=== PATIENT | female | born 1945 | race Caucasian/White ===

== ENCOUNTER → 2017-07-24 15:43 | Outpatient (CLI) | payer MEDICARE, OTHER, SELFPAY ==
--- NOTE | 2017-07-24 | IMM_PTH ---
PATIENT: APARNA GUERRERO LOC: [facility] U#:[id number] AGE/SX: 79/F ROOM: RE07/24/[address]: Dr. Javid Gann MD : 1945 BED: DIS: SPEC #: [id number] RECD: 07/28/17 11:17 STATUS: ANTHONY REQ #: [id number] RENE: 07/24/17 00:[address]: Javid Gann DEPT: IMMUNOHISTOCHEMISTRY RECD BY: Rachael Barrera ENTERED: 07/28/17 11:18 SP TYPE: IMMUNO OTHR DR: Dr. Christiano Burton III, MD Tissues: Left breast, NOS Procedures: CALPONIN-1 (add) CK5-6 (add) CK8 (add) E-CAD (add) HER2 LEANDRO (add) KI-67 (add) P53 (add) MD (add) P40 (add) ER (initial) PHYSICIAN & INSTITUTION [place] [phone] SPECIMEN INFORMATION: Tissue Source: Left breast Clinical Info: Abnormal mammogram Specimen Number: [id number] CPT code: 09695, 96646 x6, 68097 x3 METHODOLOGY: Deparaffinized sections of prefer/formalin-fixed tissue or PAP/DQ stained slides are incubated with monoclonal/polyclonal antibodies/oligonucleotide probes. Localization is made via biotin free immunoperoxidase method. Appropriate controls are performed and reacted as expected. Results on target cell population are indicated in the following table: RESULTS: ANTIBODY / CLONE RESULT P53 (DO-7) positive, 3% Ki-67 (30-9) positive, moderate CK8 (58szbkH31) positive CK5-6 (D5 & 1684) negative Calponin-1 (EX331V) negative P40 (BC28) negative E-Cad (ECH-6) positive MORPHOMETRIC ANALYSIS ER (clone 6F11) >95%, strong MD (clone 16/1E2) >95%, strong Her-2Neu (clone CB11) 0 The prognostic test for HER2 is performed on formalin-fixed paraffin embedded tissue. A 3+ (positive) staining pattern is defined as intense, homogeneous, complete, circumferential membranous staining in >10% of contiguous tumor cells. A similar weak (2+) staining pattern is interpreted as equivocal. ANIYA follow-up testing is recommended for all equivocal cases. Positivity/negativity for ER/MD is reported if > or < 1% of the tumor cells are immuno- reactive, respectively. The ASCO/CAP criteria is used for scoring. Reference: Journal of Clinical Oncology, 2013; 31:7834-2274 & 2010; 16:3491-5097. Duration of fixation: __ Hrs; Sample Adequate: Yes. These assays have not been validated on decalcified tissues. Results should be interpreted with caution given the likelihood of false negativity on decalcified specimens. These tests were developed and their performance characteristics determined by [facility]. They may not have been cleared or approved by the U.S. Food and Drug Administration. The FDA has determined that such clearance or approval is not necessary. INTERPRETATION: Left breast, ultrasound-guided biopsy: Invasive ductal carcinoma, grade 2/3. Positive for estrogen receptors (favorable prognostic indicator). Positive for progesterone receptors (favorable prognostic indicator). Negative for overexpression of UBH6ole. AM:kenyetta 07/29/17
--- NOTE | 2017-07-24 | BRBX_PTH ---
PATIENT: APARNA GUERRERO LOC: [facility] U#:[id number] AGE/SX: 79/F ROOM: RE07/24/[address]: Dr. Javid Gann MD : 1945 BED: DIS: SPEC #: [id number] RECD: 07/24/17 15:27 STATUS: ANTHONY BUSHElisabeth #: [id number] RENE: 07/24/17 00:[address]: Javid Gann DEPT: SURGICAL PATHOLOGY RECD BY: Eder Mendez ENTERED: 07/25/17 10:50 SP TYPE: BREAST BX OTHR DR: Dr. Christiano Burton III, MD Tissues: Left breast, NOS Procedures: Surgery Specimen Level IV HEADER OPERATION: Ultrasound-guided left breast biopsy PRE-OP DIAGNOSIS: Abnormal mammogram TISSUE SUBMITTED: Left breast ISCHEMIC TIME: <2 minutes MICROSCOPIC DIAGNOSIS Left breast, ultrasound-guided core biopsy: Invasive ductal carcinoma. Maximal length ? 1.3 cm Nuclear grade - 2 AM:kenyetta 07/28/17 COMMENT ER/NJ/Upy6yjx studies are being performed on sections of tumor and the results from this study will be reported separately ([id number]). MICROSCOPIC DESCRIPTION Slides are reviewed. GROSS DESCRIPTION Received is one container labeled with the patient's name and not further designated. The specimen consists of multiple elongated fragments of yellow-white soft tissue that in aggregate measure 1.5 x 1 x 0.1 cm. The specimen is totally submitted in one cassette. / AM:kenyetta 07/25/17 TC:0 CPT: 04214
== END ==
PROVIDERS: Family Provider Family Medicine; PCP Family Medicine; Visit Provider Surgery
DX: N63.20 Unspecified lump in the left breast, unspecified quadrant (principal); R92.8 Other abnormal and inconclusive findings on diagnostic imaging of breast
CPT/HCPCS: 88305; 88341; 88342

== ENCOUNTER 2017-09-29 07:52 | Day surgery (SDC) | payer MEDICARE, OTHER, SELFPAY ==
[2017-09-29] VITALS (8 sets, daily range): BP systolic 92–134; BP diastolic 58–90; PULSE 62–89; RESP 15–18; TEMP 36.3–36.9; O2SAT 92–98; BMI 29.7
--- NOTE | 2017-09-29 | AXNB_PTH ---
PATIENT: APARNA GUERRERO [place] [facility] [place][id number] AGE/SX: 71/F ROOM: RE09/29/[address]: Dr. Javid Gann MD : 1945 BED: DIS: 09/30/2017 SPEC #: [id number] RECD: 09/29/17 12:24 STATUS: ANTHONY DHAVAL #: [id number] RENE: 09/29/17 00:[address]: Javid Gann DEPT: SURGICAL PATHOLOGY RECD BY: Rachael Barrera ENTERED: 09/29/17 12:58 SP TYPE: AX NODE BX OTHR DR: Dr. Christiano Burton III, MD Tissues: A - Axillary lymph node, NOS B - Left breast, NOS Procedures: Frozen Section (charge) Surgery Specimen Level IV HEADER OPERATION: Breast, lumpectomy, sentinel node, NL, neoprobe PRE-OP DIAGNOSIS: Left breast, invasive ductal carcinoma TISSUE SUBMITTED: A. Left axillary sentinel lymph nodes, biopsy, B. Left breast mass FROZEN SECTION DIAGNOSIS A. Left axillary sentinel lymph nodes, biopsy: Three out of three lymph nodes negative for carcinoma. AM:kenyetta 09/29/17 Case has been reviewed in consultation with Dr. Knight who concurs with the above diagnosis. IDC:SJ MICROSCOPIC DIAGNOSIS A. Left axillary sentinel lymph nodes: 3 out of 3 lymph nodes negative for carcinoma. B. Left breast mass, lumpectomy: Invasive ductal carcinoma. See complete cancer check list. AM:yogesh 10/02/17 COMMENT CARCINOMA OF BREAST: Specimen ? partial breast Procedure ? excision with wire localization Lymph node sampling ? see specimen A Specimen integrity ? single intact specimen Specimen size ? 9 x 3.5 cm Specimen laterality ? left Tumor size ? 2 x 2 x 1.5 Tumor focality ? single focus of invasive carcinoma Macroscopic and Microscopic extent of tumor: Skin ? free of invasive carcinoma Nipple ? not present Skeletal muscle ? 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 not present Size of DCIS ? 1.5 x 0.2 x 0.2cms Morphology of DCIS ? solid pattern Lobular carcinoma in situ ? not present Histologic type of invasive carcinoma ? invasive ductal carcinoma with neuroendocrine features. Glandular /tubular differentiation ? 3 Nuclear pleomorphism ? 3 Mitotic count ? 2 Overall Grade for invasive carcinoma ? grade 3 (score of 8) Margins ? uninvolved by invasive and ductal carcinoma in situ Closest surgical margin ? 0.5 cm (posterior margin) Lymph-Vascular invasion ? not identified Lymph nodes: see specimen A Number of sentinel lymph nodes ? 3 Total number of lymph nodes examined ? 3 No evidence of macrometastasis, micrometastasis, or isolated tumor cells present. Additional pathologic findings ? focal fibroadenoma, hyalinized, mild fibrocystic change, nonproliferative with associated microcalcifications. PATHOLOGIC STAGE: T1c N0(sn) Mx Immunohistochemistry ([id number]) supports the above diagnosis and highlights the neuroendocrine features of the carcinoma. The above summary is in compliance with [employer] [place] [employer] (CAP) Cancer Protocols Checklist and [place] Joint Committee on Cancer (AJCC), Staging Manual, 8th Ed. Case has been reviewed in consultation with Dr. Knight who concurs with the above diagnosis. IDC:SJ MICROSCOPIC DESCRIPTION Slides are reviewed. GROSS DESCRIPTION A. Received in fixative is one container labeled with the patient's name and designated left breast sentinel lymph node. The specimen consists of an irregular fragment of ramirez-yellow fibrofatty tissue measuring 3 x 3 x 1.2 cm. Dissection reveals 3 nodules ranging in size from 1 cm to 1.5 cm in greatest dimension. The nodules are submitted in their entirety in one block for frozen section consultation. AM:yogesh 09/29/17 B. Received fresh for intraoperative consultation is a labeled with the patient's name and designated left breast mass. The specimen consists of a piece of fibroadipose tissue with needle localization measuring 9 x 3.5 cm. There is a piece of skin present anteriorly close to superior margin measuring 3 x 1 cm. The specimen is oriented as follows: wire cranial skin 2 o?clock, single tail medial, double tail inferior. The specimen is inked as follows: anterior ? yellow, posterior ? black, superior ? blue, inferior ? green, medial ? red, lateral ? orange. Serial section revealed a ramirez indurated tumor mass measuring 2 x 2 x 1.5 cm. The mass is located 0.5 cm away from the closest posterior margin. The specimen is reviewed with the surgeon in person. Section of the rest of the specimen revealed ramirez-yellow adipose cut surface mixed with ramirez-white fibrous areas. Rand Cementer sections are submitted in 12 cassettes as follows: 1 perpendicular medially to posterior margin, 2 perpendicular superior inferior and anterior margin, 3?7 entire tumor, 8&9 billing customer service representative section adjacent to the tumor, 10-12 billing customer service representative section away from the tumor. Section will be submitted after infusion cycle. The tumor is submitted in entirety. SJ:sp 09/29/17 TC:0 CPT: ADDENDUM ADDENDUM ADDENDUM ADDENDUM ADDENDUM ADDENDUM ADDENDUM ADDENDUM 12/02/2017 11:10 ADDENDUM 12/02/2017 11:10 ADDENDUM 12/02/2017 11:10 ADDENDUM 12/02/2017 11:10 ADDENDUM 12/02/2017 11:10 An order for Oncotype testing was received from Dr. Delgado. This necessitated case review, block and slide selection by pathologist at [facility]. Breast Cancer Recurrence Score = 11 Results of the complete Oncotype testing ([facility] report) are viewable in EMR under: Reports - Pathology - Lab Pathology Report, Scanned.
--- NOTE | 2017-09-29 | IMM_PTH ---
PATIENT: APARNA GUERRERO LOC: [facility] [place] U#:[id number] AGE/SX: 71/F ROOM: RE09/29/[address]: Dr. Javid Gann MD : 1945 BED: DIS: 09/30/2017 SPEC #: [id number] RECD: 10/02/17 12:07 STATUS: ANTHNOY REQ #: [id number] RENE: 09/29/17 00:[address]: Javid Gann DEPT: IMMUNOHISTOCHEMISTRY RECD BY: Mendoza Ibarra ENTERED: 10/02/17 12:09 SP TYPE: IMMUNO OTHR DR: Dr. Christiano Burton III, MD Tissues: A - Axillary lymph node, NOS B - Left breast, NOS Procedures: Synapto (add) CD56 (add) E-CAD (add) Pankeratin (add) P40 (add) CK7 (initial) NSE (add) CHROMO (initial) PHYSICIAN & INSTITUTION [place] [id number] SPECIMEN INFORMATION: Tissue Source: A. Left axillary sentinel lymph nodes, biopsy, B. Left breast mass Clinical Info: Left breast, invasive ductal carcinoma Specimen Number: [id number] CPT code: 71168x4, 01114 x6 METHODOLOGY: Deparaffinized sections of prefer/formalin-fixed tissue or PAP/DQ stained slides are incubated with monoclonal/polyclonal antibodies/oligonucleotide probes. Localization is made via biotin free immunoperoxidase method. Appropriate controls are performed and reacted as expected. Results on target cell population are indicated in the following table: RESULTS: ANTIBODY / CLONE RESULT Block A CK7 (OV-TL12/30) negative AE1-3 (AE1/AE3/PCK26) negative Block B Chromo (LK2H10) negative Synapto (polyclonal) positive CD56 (123C3.D5) negative NSE Neuron Specific Enolase positive E-Cad (ECH-6) positive P40 (BC28) negative These tests were developed and their performance characteristics determined by [facility]. They may not have been cleared or approved by the U.S. Food and Drug Administration. The FDA has determined that such clearance or approval is not necessary. INTERPRETATION: A. Left axillary sentinel lymph nodes, biopsy: Three out of 3 lymph nodes negative for carcinoma B. Left breast mass: Invasive ductal carcinoma with neuroendocrine features Case has been reviewed in consultation with Dr. Knight who concurs with the above diagnosis. IDC:AARON AM:sammy 10/06/17
--- NOTE | 2017-09-29 08:30 | NM_ITS ---
PROCEDURE: NUCLEAR MEDICINE Injection [place] Node - LEFT breast(s). REASON FOR EXAM: Female, 71 years old. Left breast cancer. TECHNIQUE: [place] node localization using radionuclide methods of the LEFT breast(s) was performed following subcutaneous administration of 1 mCi of of sulfur colloid Tc-99m. FINDINGS: 1 mCi of technetium sulfur colloid was injected in 4 equal aliquots in the upper outer quadrant of the left breast. NM/Lymph Node Injection Only IMPRESSION: Subcutaneous injection of 1 mCi of technetium sulfur colloid in 4 equal aliquots. Electronically Signed: Que Pritchard MD at 9:22 EDT Tel [phone], Service support ,
--- NOTE | 2017-09-29 09:30 | BI_ITS ---
SURGICAL BREAST SPECIMEN RADIOGRAPH CLINICAL: Document presence of mass in biopsy specimen. FINDINGS: Specimen shows presence of mass. Electronically Signed: Que Pritchard MD at 14:48 EDT Tel [phone], Service support , BI/Breast Biopsy Specimen
[2017-09-29] MEDS: Cefazolin 2 GM in 0.9% Normal Saline 100 ML IV (11:05)
[2017-09-29] MEDS: Isosulfan Blue 1% 5 ML Vial 2.5 ML OPERA.SITE (11:40)
[2017-09-29] MEDS: Bupivacaine Mpf 0.5% 30 ML VIAL (12:04)
--- NOTE | 2017-09-29 13:11 | OP.PCM_ITS ---
Report of Operation Date of Procedure: 09/29/17 Pre-Operative Diagnosis: left upper outer quadrant breast cancer Post-Operative Diagnosis: left upper outer quadrant breast cancer, good gross and radiographic margins, 3/3 SLNBx - negative Surgery/Procedure Performed:: left needle localization lumpectomy for upper outer quadrant breast cancer, SLNBx - radiotracer and lymphazurin registered nurse cardiac telemetry: Edy Miller Anesthesiologist: Masoud Wellington - ASA2 Specimen's removed: left SLNBx, left lumpectomy Drains: none Estimated Blood Loss (mL): 10 Fluids Replaced: 600 Description of Procedure: The patient was brought to the stereotactic suite. Her left breast was positioned in the CC approach in the [place] stereotactic table. Mammogram image demonstrated the clip to be nicely centered. Stereotactic images were obtained. Planned placement of the wire was marked and an additional 15 mm of depth added to the prescribed depth. The breast was then cleaned with Betadine. Local anesthetic was injected in the breast and a 15 Kopan's wire was inserted to the prescribed depth. Stereotactic images demonstrated good positioning of the wire. The wire was deployed as an needle was withdrawn. Stereotactic images demonstrated good positioning of the wire. The breast was marked compression the wire cut to length and taped. CC and MLO views were then obtained. The patient had previously undergone injection of radiotracer. The patient was then brought to the operative suite. Sign was performed verifying patient, site, position, SCIP antibiotic prophylaxis-2 g of Ancef and DVT prophylaxis with SCDs. Following an LMA anesthesia, 5 cc of a 50-50 mixture of lymphazuin blue and normal saline was injected into sappey's plexus. The breast was then massaged. Evaluation of the axilla with the neoprobe demonstrated no specific increased activity. Ultrasound was also used to evaluate the area of the tumor. The mass on ultrasound was noted to be approximately 1/2 cm deep to the skin approximately two thirds of the way deep towards the pectoralis muscle and the body of the tumor seemed somewhat lateral to the 2:00 position. This was marked on the skin site. The patient?s left breast, axilla right arm and neck were then prepped and draped in the usual fashion. Timeout was performed verifying patient, site, position. Local anesthetic was injected at the marked site and the incision made in the low anterior axilla. Dissection carried down through subcutaneous tissues. A blue lymphatic duct was identified and tracked back to the sentinel lymph node which turned nicely blue. This node and 2 additional blue nodes were then dissected free from the surrounding structures. After was removed, it was evaluated with the neoprobe and contained approximately 1200 counts. The neoprobe was then used to assess the axilla through the incision. No additional lymph nodes were palpated. There was an area running along the lymphatic duct which had approximately 50 counts. There was good hemostasis in the small sentinel node dissection area. Subcutaneous tissues closed with interrupted 3-0 Vicryl suture. Skin was closed with a running 4-0 Biosyn subcuticular suture. Verbal report from the pathologist demonstrated negative left sentinel lymph nodes. Attention was then turned to the lumpectomy specimen. The wire entered the breast at the 2:00 position. An elliptical incision was made and dissection carried down to subcutaneous breast tissue and then flared out such that a good margin would be obtained in all axis. The breast tissue was taken down close to the pectoralis fascia. When the specimen was removed. The wire came from the superficial cranial site. A solitary suture was placed at the medial site just where the dissection was changed from superficial below the breast tissue to angling deep. A double tail suture was placed along the inferior aspect of the specimen. The specimen was oriented on a radiographic plate and sent for specimen radiograph. While we?re awaiting specimen radiograph, the cavity was irrigated with sterile water and aspirated. There was noted to be good hemostasis. 4 medium clips were placed at the deep cavity margins and 4 small clips at the superficial cavity margins oriented the cavity for future radiation treatment. Subcutaneous breast tissue closed with interrupted 3-0 Vicryl suture. Skin was closed with a running 4-0 Biosyn subcuticular suture. Specimen radiograph demonstrated good position of the clip relative to the biopsy site. The specimen was then brought to the pathology department. I oriented the specimen with the pathologist. Gross margins were examined and felt to be at least 1 cm. Given this, Dermabond was applied to the skin the patient was awakened and brought to recovery in stable condition. - Admit VTE Documentation VTE Present on Admission: No VTE Mechan Device Prophylaxis: SCD's
[2017-09-29] MEDS: Lactated Ringers 1,000 ML 100 ML IV (14:49)
[2017-09-30] MEDS: Lactated Ringers 1,000 ML 100 ML IV (00:16)
[2017-09-30 02:04] VITALS: BP 117/77; PULSE 65; RESP 16; TEMP 36.8; O2SAT 94
[2017-09-30] MEDS: 0.9% NaCl Peripheral Flush Adult/Peds IV (05:59)
[2017-09-30 08:00] VITALS: BP 132/88; PULSE 71; RESP 18; TEMP 36.6; O2SAT 94
--- NOTE | 2017-09-30 08:30 | NURSING ---
Pt is s/p left lumpectomy. teaching packet given. pt does not have a ERIC drain. has 3 opsite dressings that are intact. pt states she is having minimal discomfort. no further teaching needed at this time. denies further needs or questions. hoping to go home today.
--- NOTE | 2017-09-30 12:45 | PCM.DC.BS ---
Discharge Diet: No Restrictions Discharge Activity: May Not Drive - for 2-3 days or while taking narcotic pain meds. May shower in (days): 1 Lifting Restrictions: 10 pounds for 1 week. Call your doctor if your incision/area has: Continuous Slow Oozing, Sudden Increased Bleeding Call your doctor if you observe: Fever of 101 or Higher Suture Line Care: Avoid Pulling/Pushing, Avoid Pinching/Bending Remove Dressing in (days):: 1 - Remove bulky dressing tomorrow. May leave any opsite dressing for 3-4 days. Keep dressing in place until your follow-up appointment. Additional Dressing/Incision Instructions:: Remove bulky dressing tomorrow. May leave any opsite dressing for 3-4 days. Keep dressing in place until your follow-up appointment. Allergies/Adverse Reactions: Allergies No Known Allergies Allergy (Verified 01/25/16 08:21) Medications to take at Discharge Folic Acid 1 tab PO DAILY 09/29/17 Lisinopril [Zestril] 1 tab PO DAILY 09/29/17 Methotrexate 8 tab PO QWEEK 09/29/17 Primary Care Physician: Christiano Burton III, MD [Primary Care Provider] - Please Follow Up With: Javid Gann MD When: October 09
--- NOTE | 2017-09-30 17:55 | PCM.DC.SUM ---
Discharge Date and Diagnosis Date of Admission: 09/29/17 Date of Discharge: 09/30/17 - Primary Discharge Diagnosis left breast cancer Hospital Course and Treatment Consultations 09/29/17 13:13 Consult: Onc/Wound/sales support associate Routine Comment: Reason for Consult:: breast Operations: - - left lumpectomy and sentinel lymph node biopsy Summary of Care Provided: The patient is a 71 year old F with the tissue diagnosis of upper-outer quadrant left breast invasive ductal carcinoma. The patient was admitted and underwent a needle localization excisional breast biopsy/lumpectomy and sentinel lymph node biopsy with lymphazurin blue and radiotracer injection. the patient had 3 lymph nodes identified which were all felt to be uninvolved. On initial evaluation., The patient did well with minimal pain, was able to be discharged home on postoperative day 1 with plans to follow up in my office next week. Discharge Diet: No Restrictions Discharge Activity: May Not Drive - for 2-3 days or while taking narcotic pain meds. May shower in (days): 1 Call your doctor if your incision/area has: Continuous Slow Oozing, Sudden Increased Bleeding Call your doctor if you observe: Fever of 101 or Higher Suture Line Care: Avoid Pulling/Pushing, Avoid Pinching/Bending Remove Dressing in (days):: 1 - Remove bulky dressing tomorrow. May leave any opsite dressing for 3-4 days. Keep dressing in place until your follow-up appointment. Additional Dressing/Incision Instructions:: Remove bulky dressing tomorrow. May leave any opsite dressing for 3-4 days. Keep dressing in place until your follow-up appointment. Home Medications: Medications to take at Discharge Folic Acid 1 tab PO DAILY 09/29/17 Lisinopril [Zestril] 1 tab PO DAILY 09/29/17 Methotrexate 8 tab PO QWEEK 09/29/17 Primary Care Physician: Christiano Burton III, MD [Primary Care Provider] - Please Follow Up With: Javid Gann MD When: , October 09 Medical Necessity - Tobacco Use Smoking Status: Current every day smoker Meaningful Use Info Meaningful Use Diagnoses (Choose all that apply): None applicable
== END 2017-09-30 12:55 | disposition home or self-care (01) ==
LOC: SDC 07:53 → AC 07:54 → MS3 13:25
PROVIDERS: Family Provider Family Medicine; PCP Family Medicine; Visit Provider Surgery
PROC: (CPT 19301; principal; 2017-09-29 10:50)
DX: C50.412 Malignant neoplasm of upper-outer quadrant of left female breast (principal); I10 Essential (primary) hypertension; M06.9 Rheumatoid arthritis, unspecified; F17.210 Nicotine dependence, cigarettes, uncomplicated; Z79.899 Other long term (current) drug therapy; Z85.41 Personal history of malignant neoplasm of cervix uteri; Z90.710 Acquired absence of both cervix and uterus
CPT/HCPCS: 00400; 19301; 38500; 19281; 38792; 76098; 88305; 88331; 88341; 88342; A9541; J7120; A4216; J2405; J3490; Q9968

== ENCOUNTER 2022-01-20 17:13 | Emergency (ER) | payer MEDICARE, OTHER, SELFPAY ==
[2022-01-20 17:16] VITALS: BP 162/90; PULSE 63; RESP 14; TEMP 36.3; O2SAT 93; BMI 31.1
--- NOTE | 2022-01-20 17:41 | ED.VIS.LOWEX ---
HPI History of Present Illness HPI Narrative: Patient presents with right foot injury that occurred today. Patient states she was getting up from a seated position and inverted her right foot and ankle. Patient states she felt a pop. Patient states her pain is constant. Patient describes it as burning. Patient states it is worse with movement. Patient states it is better with rest. Patient denies any paresthesias or weakness. Patient denies any pain over the proximal fibula or lateral malleolus. Patient denies any other injuries. Chief Complaint: Lower Extremity Injury Informant: patient Onset/Context/Timing Onset: Today Context: Sudden Onset Timing: Continuous Quality of Pain: Burning Location: Right foot Worsened by: Movement Relieved by: Rest Associated Symptoms Associated Symptoms: Negative for Parasthesia, Weakness or Loss of Funtion PFSH PFSH Medical History Breast cancer Home Medications folic acid 1 mg tablet 1 tab PO DAILY 09/29/17 [History Last Taken Unknown] lisinopril 5 mg tablet 1 tab PO DAILY 09/29/17 [History Last Taken 09/29/17 06:00] methotrexate sodium 2.5 mg tablet 8 tab PO QWEEK 09/29/17 [History Last Taken 09/28/17] hydrocodone-acetaminophen 5-325mg 5mg-325mg 1 tab PO Q6H PRN PRN Pain 3 days #10 TABLETS 01/20/22 [Rx Last Taken Unknown] Allergy/AdvReac Type Severity Reaction Status Date / Time No Known Allergies Allergy Verified 01/20/22 17:15 Social History Smoking Status: Current every day smoker tobacco type: cigarettes ROS ROS ED Constitutional Constitutional ED: Denies chills or fever(s) Eyes Eyes: Denies blurry vision or change in vision ENT ENT ED: Denies rhinorrhea or sore throat Cardiovascular Cardiovascular: Denies chest pain or palpitations Respiratory/Chest Respiratory/Chest: Denies cough or dyspnea Gastrointestinal Gastrointestinal: Denies nausea or vomiting Genitourinary Genitourinary ED: Denies dysuria or hematuria Musculoskeletal Musculoskeletal: Reports neck pain; Denies back pain Integumentary Denies abscess or rash Neurologic Neurologic: Denies headache(s) or weakness Allergic/Immunologic Allergic/Immunologic ED: Denies mouth swelling or urticaria EXAM Physical Exam Const Vital Signs: 01/20/22 17:16 Temperature 97.4 F L Temperature Source Temporal Pulse Rate 63 Respiratory Rate 14 Blood Pressure 162/90 H Blood Pressure Mean 114 Pulse Ox 93 Oxygen Delivery Method Room Air Positive well nourished and well developed General Appearance ED: well developed and NAD HEENT Reports moist mucous membranes Neck full ROM and supple Extremity Extremity Narrative: There is tenderness, edema, and ecchymosis over the right fifth metatarsal. There is no obvious deformity noted. Range of motion was slightly limited in all motions of the right foot secondary to pain. Sensation was intact to light touch in all digits. Capillary refills less than 2 seconds in all digits. Pedal pulses are equal bilateral. There is no tenderness over the medial or lateral malleoli. There is no tenderness over the proximal fibula. Neuro oriented x3, CN's II-XII intact bilaterally, moves all extremities and no sensory deficits noted Sensorium / Orientation: alert Motor Exam: strength 5/5 throughout Psych mental status grossly normal Skin no wounds MDM MDM MDM Narrative Medical decision making narrative: X-rays of the right foot were obtained. There are 3 views. On my interpretation, there is a fracture of the base of the fifth metatarsal into the tarsal metatarsal joint. There is no displacement noted. Radiologist also interpreted the x-rays and agrees. Patient was advised of her findings. Patient was given a walking boot. Patient was given crutches. Patient was instructed to ice and elevate the right foot. Patient was given a referral for orthopedics. Patient was given a prescription for [place]. Patient was instructed to follow-up with her primary care physician in 5 to 7 days. Patient was also instructed to follow-up with orthopedics in 3 to 5 days. Patient understood and was agreeable with the plan. All questions were answered. Discharge Plan Triage Chief Complaint: Lower Extremity Injury ED Provider: Masoud Rodriguez Dx/Rx/DC Orders Clinical Impression: Fracture of fifth metatarsal bone of right foot Instructions: ED Fracture, Foot Prescriptions: New hydrocodone-acetaminophen [hydrocodone-acetaminophen] 5-325 mg tablet 1 tab PO Q6H PRN PRN (Reason: Pain) 3 Days Qty: 10 0RF No Action methotrexate sodium 2.5 MG tablet 8 tab PO QWEEK Label Comments: TAKE 3 TABS ON 07/20, 4 TABS ON 07/27, 5 TABS ON 08/03, 6 TABS ON 08/10, 7ON 08/17, THEN 8 ON 08/24 folic acid 1 MG tablet 1 tab PO DAILY Label Comments: TAKE 1 TABLET BY MOUTH EVERY DAY lisinopril 5 MG tablet 1 tab PO DAILY Label Comments: TAKE 1 TABLET BY MOUTH EVERY DAY Primary Care Provider: Balta De Souza Referrals: Agustin Coats MD [Med Staff - Active Staff] - 3-5 Days Balta De Souza MD [Primary Care Provider] - 5-7 Days Disposition Disposition: Home, Self Care
--- NOTE | 2022-01-20 17:47 | RAD_ITS ---
STUDY: X-RAY - RIGHT FOOT CLINICAL: Female, 76 years old. Rolled foot when getting up from a sitting position. Pain. TECHNIQUE: 3 view(s) of the foot. COMPARISON: None. FINDINGS: Generalized osteopenia. Normal talus, calcaneus, and tarsal bones. Mild arthrosis of the visualized subtalar, talonavicular, calcaneocuboid, tarsal and tarsometatarsal articulations. Normal first through fourth metatarsi. There is a nondisplaced transverse fractures through the base of the fifth metatarsal. Normal metatarsophalangeal joint of the great toe. Normal tibial and fibular sesamoid bones. Normal phalanges of the great toe. Normal second through fifth metatarsophalangeal joints. Arthrosis of the interphalangeal joints of the lesser toes. Normal phalanges of the lesser toes. The soft tissue structures are unremarkable. RAD/Foot min 3 Views IMPRESSION: 1. Fracture of the base of the fifth metatarsal. 2. Osteopenia and degenerative changes of the right foot. Electronically Signed: Wilder Wei DO at 18:29 EDT ,
== END 2022-01-20 18:55 | disposition home or self-care (01) ==
PROVIDERS: Emergency Provider Emergency Medicine; PCP Family Medicine; Visit Provider Emergency Medicine
DX: S92.354A Nondisplaced fracture of fifth metatarsal bone, right foot, initial encounter for closed fracture (principal); X50.1XXA Overexertion from prolonged static or awkward postures, initial encounter; Y93.89 Activity, other specified; F17.210 Nicotine dependence, cigarettes, uncomplicated
CPT/HCPCS: 73630; 99284

== ENCOUNTER 2024-02-16 19:41 | Emergency (ER) | payer MEDICARE, OTHER, SELFPAY ==
[2024-02-16 19:41] VITALS: BP 133/71; PULSE 99; RESP 18; TEMP 37.5; O2SAT 89; BMI 25.9
--- NOTE | 2024-02-16 19:54 | RAD_ITS ---
EXAM: XR CHEST, 1 VIEW CLINICAL INDICATION: Preop clearance TECHNIQUE: Frontal view of the chest. COMPARISON: 01/25/2016 FINDINGS: LUNGS AND PLEURAL SPACES: Mild diffuse interstitial prominence likely secondary to chronic interstitial changes or perhaps interstitial edema with more focal airspace disease in the right lower lobe, likely pneumonia. No pneumothorax. No effusion. HEART: No significant abnormality. Cardiac silhouette not enlarged. MEDIASTINUM: Central airways and mediastinal contour are unremarkable. BONES/JOINTS: Degenerative changes in the spine and shoulders. No acute fracture. SOFT TISSUES: No significant abnormality. RAD/Chest 1 View IMPRESSION: Mild diffuse interstitial prominence likely secondary to chronic interstitial changes or perhaps interstitial edema with more focal airspace disease in the right lower lobe, likely pneumonia. Electronically Signed: Tayo Grier DO at 21:05 EST ,
--- NOTE | 2024-02-16 19:54 | EKG12_ITS ---
Test Reason : DYSRHYTHMIA Blood Pressure : */* mmHG Vent. Rate : 113 BPM Atrial Rate : 113 BPM P-R Int : 142 ms QRS Dur : 72 ms QT Int : 326 ms P-R-T Axes : 60 18 46 degrees QTcB Int : 447 ms Sinus tachycardia Otherwise normal ECG Confirmed by JENNIFER HERNANDEZ, BEBA ([id number]), tape editor GIOVANNA MALONEY ([id number]) on 02/17/2024 6:42:05 AM Referred By: Confirmed By: BEBA RODRIGUEZ MD
--- NOTE | 2024-02-16 19:55 | RAD_ITS ---
EXAM: XR PELVIS, 1 OR 2 VIEWS CLINICAL INDICATION: Injury/Pain TECHNIQUE: Frontal view of the pelvis. COMPARISON: Femur on the same date. FINDINGS: BONES/JOINTS: Comminuted intertrochanteric fracture of the right femur. Degenerative changes of the bilateral sacroiliac joints. Mild degenerative changes of the left hip. No destructive or sclerotic lesions. Note that overlapping bowel shadows may however obscure fine detail. No widening of the pubic symphysis. SOFT TISSUES: No significant abnormality. No soft tissue swelling or gas. RAD/Pelvis 1 or 2 Views IMPRESSION: Comminuted intertrochanteric fracture of the right femur. Electronically Signed: Tayo Grier DO at 21:07 EST ,
--- NOTE | 2024-02-16 19:55 | RAD_ITS ---
EXAM: XR RIGHT FEMUR, 2 VIEWS CLINICAL INDICATION: Injury/Pain TECHNIQUE: Frontal and lateral views of the right femur. COMPARISON: Pelvis on the same date. FINDINGS: BONES/JOINTS: Comminuted intertrochanteric fracture. Degenerative changes of the right sacroiliac joint. Mild degenerative changes at the knee. No sclerotic or destructive changes observed. SOFT TISSUES: No significant abnormality. No soft tissue swelling or gas. No radiopaque foreign body. VASCULATURE: Vascular calcifications. RAD/Femur Min 2 Views IMPRESSION: Comminuted intertrochanteric fracture. Electronically Signed: Tayo Grier DO at 21:06 EST ,
[2024-02-16] MEDS: Ondansetron 4 MG/2 ML Vial IV (20:14)
[2024-02-16] MEDS: HYDROmorphone 0.5 MG/0.5 ML SYRINGE IV (20:14)
[2024-02-16 20:19] VITALS: BP 119/75; PULSE 112; PULSE 114; RESP 25; RESP 28; O2SAT 86; O2SAT 95
[2024-02-16 20:19] LABS: Absolute Lymphocyte Count 0.34 X10^3/uL (0.83-4.51); Absolute Neutrophil Count 20.5 X10^3/uL (2.0-7.7); Basophil# 0.06 X10^3/uL; Basophil% 0.3 % (0-1); Eosinophil# 0.01 X10^3/uL; Hematocrit 33.7 % (37-47); Hemoglobin 11.3 g/dL (12.0-15.0); Lymphocyte # 0.34 X10^3/ul (0.83-4.51); Lymphocyte % 1.5 % (19-41); Mean Corp Hgb Conc 33.5 g/dL (32-36); Mean Corpuscular Hgb 31.2 pg (27.0-32.0); Mean Corpuscular Volume 93.1 fL (81-99); Mean Platelet Vol. 9.7 fl (6.2-12.0); Monocyte# 1.43 X10^3/uL; Monocyte% 6.4 % (0-10); NRBC Flagged by Analyzer 0 % (0-5); Neutrophil # 20.47 X10^3/uL (2.7-7.7); Neutrophil % 91.3 % (47-70); POSITIVE DIFFERENTIAL YES; Platelet Count 201 K/mm3 (150-450); RBC Distribution Width CV 12.5 % (11.6-14.6); RBC Distribution Width SD 43.1 fl (35.1-43.9); Red Blood Count 3.62 M/mm3 (4.2-5.4); White Blood Count 22.4 K/mm3 (4.4-11.0)
--- NOTE | 2024-02-16 20:19 | EDS_ITS ---
HPI History of Present Illness Chief Complaint: Lower Extremity Injury Detail of Chief Complaint: Right hip pain status post fall Informant: patient Onset/Context/Timing Onset: Hours Context: Sudden Onset Timing: Continuous Quality: Pain over the right greater trochanteric region status post fall Location: Right greater trochanteric region Current Severity: Moderate Maximum Severity: Severe Worsened by: Any movement Relieved by: Nothing Associated Symptoms Associated Symptoms: Inability to get up off the floor Narrative Narrative: Patient is a 78-year-old woman. She fell from a 3 foot stool. She landed on her right hip. She denied head trauma. She is not on an anticoagulant or antithrombotic. She denies headache. She denies visual, ocular auditory symptoms. She denies neck pain. She denies chest pain or shortness of breath. She denies paresthesia, anesthesia or motor weakness upper lower extremity. She denies trouble with speech or swallowing. She does give history of foot fracture and was seen by podiatry. Prior similar symptoms: No Recent Illness/Hospitalization: No PFSH PFSH Medical History Breast cancer Home Medications ?Medication ?Instructions ?Recorded ?Last Taken ?Type anastrozole 1 mg tablet 1 mg PO DAILY 01/24/22 Unknown History cholecalciferol (vitamin D3) 10 10 mcg PO DAILY 01/24/22 Unknown History mcg (400 unit) capsule ibuprofen 200 mg capsule 200 mg PO Q6H PRN 01/24/22 Unknown History Allergy/AdvReac Type Severity Reaction Status Date / Time adhesive tape Allergy Mild Blisters Verified 02/16/24 19:48 Social History Smoking Status: Former smoker ROS ROS ED Constitutional Constitutional ED: Denies chills, fever(s) or subjective Eyes Eyes: Denies blurry vision or change in vision ENT ENT ED: Denies ear pain, rhinorrhea or sore throat Cardiovascular Cardiovascular: Denies chest pain or palpitations Respiratory/Chest Respiratory/Chest: Denies cough, dyspnea or dyspnea on exertion Gastrointestinal Gastrointestinal: Denies abdominal pain, nausea or vomiting Genitourinary Genitourinary ED: Denies dysuria, hematuria or urinary frequency Musculoskeletal Musculoskeletal: Denies arthralgias, back pain, myalgias or neck pain Integumentary Denies rash Neurologic Neurologic: Denies headache(s), paresthesias or weakness Hematologic/Lymphatic Hematologic/Lymphatic: Reports systems reviewed and no addt'l complaints, except as documented EXAM Physical Exam Const Vital Signs: 02/16/24 19:41 02/16/24 20:19 02/16/24 20:19 Temperature 99.5 F H Temperature Source Oral Pulse Rate 99 112 H 114 H Respiratory Rate 18 25 H 28 H Blood Pressure 133/71 H 119/75 Blood Pressure Mean 91 89 Pulse Ox 89 86 95 Oxygen Delivery Method Room Air Nasal Cannula Oxygen Flow Rate (L/min) 2 Positive well nourished and well developed Constitutional Narrative: Patient appears in discomfort. She arrived by ambulance. She is tilted onto her right buttocks. Vital signs reveal slight elevation of blood pressure. General Appearance ED: well developed HEENT Reports moist mucous membranes HEENT Narrative: Head is atraumatic normocephalic. Ears normal. Nares patent. No septal deviation hematoma. Posterior pharynx is normal. Eyes PERRL and EOMs intact bilaterally Eyes Narrative: There is no subconjunctival hemorrhage noted. General Eye ED: Negative for pale conjunctiva or scleral icterus Neck no lymphadenopathy, supple and no JVD Neck Narrative: There is no posterior midline neck pain. Chest Wall inspection of chest normal and palpation of chest normal Resp normal respiratory effort and clear to auscultation bilaterally Cardio regular rate, regular rhythm, S1 normal heart sound, S2 normal heart sound and no murmurs GI normal to inspection, nondistended, normoactive bowel sounds, non-tender, non- distended and no masses; Negative for hepatosplenomegaly Back/Spine Cervical Spine: Negative for cervical spine tenderness Thoracic Spine / Upper Back: Negative for thoracic spinal tenderness Lumbar Spine / Lower Back: Negative for lumbar spinal tenderness Extremity Extremity Narrative: There appears to be some shortening of the right lower extremity. There is pain ovation of the right greater trochanteric region and movement of the leg causes her pain in the hip region. She does not localize it to the inguinal area. There is no pain ovation over the pubic symphysis, right or left ischial tuberosity or the right or left iliac wing. Neuro oriented x3, CN's II-XII intact bilaterally and no sensory deficits noted Sensorium / Orientation: alert Psych mental status grossly normal Skin no rashes or lesions noted, no wounds and skin turgor normal MDM MDM MDM Narrative Medical decision making narrative: With history of fall from 3 feet unable to rise and complaint hip pain suspect patient has a hip fracture will obtain images determine if she has a femoral neck versus intertrochanteric versus intertrochanteric. Appropriate blood work and images were obtained for preoperative clearance. Patient was medicated with hydromorphone for her pain and Zofran for her nausea. She received fentanyl and route. She states the pain diminished for approximately 15 minutes. Doubt this is a pathologic fracture with her history of breast cancer. Chest x-ray will also be able to evaluate for rib fractures and pneumothorax which is doubtful. Lab Data Attestation: I reviewed the patient's lab results. Lab results narrative: White count is elevated at 22.4 thousand with slight shift. Patient has evidence of anemia. Indices are normal. Basic metabolic panel reveals an elevated BUN to creatinine ratio and slight elevation of glucose. CO2 anion gap are normal. Coags are normal. Labs: Laboratory Results - last 24 hr 02/16/24 20:07 WBC 22.4 H RBC 3.62 L Hgb 11.3 L Hct 33.7 L MCV 93.1 MCH 31.2 MCHC 33.5 RDW Std Deviation 43.1 RDW Coeff of Jamie 12.5 Plt Count 201 MPV 9.7 Immature Gran % (Auto) 0.500 Neut % (Auto) 91.3 H Lymph % (Auto) 1.5 L Waller % (Auto) 6.4 Eos % (Auto) 0.0 Baso % (Auto) 0.3 Absolute Neuts (auto) 20.5 H Absolute Lymphs (auto) 0.34 L Nucleated RBC % 0 Platelet Estimate ADEQUATE RBC Morphology NORM C+C PT 16.0 H INR 1.3 APTT 25.4 Sodium 137 Potassium 3.6 Chloride 104 Carbon Dioxide 24.0 Anion Gap 10 BUN 16 Creatinine 0.58 Estim Creat Clear Calc 52.76 Est GFR (MDRD) Af Amer 129 Est GFR (MDRD) Non-Af 107 BUN/Creatinine Ratio 27.4 H Glucose 117 H Calcium 8.5 Radiography Chest X-Ray - ED: 2 View (2 view chest x-ray reveals mild interstitial prominence with focal airspace disease noted on the right concerning for pneumonia.) and Read by ED Physician (Single view pelvis and 2 view x-ray of the femur reveals a comminuted intertrochanteric fracture of the right femur that is not displaced. All films were independent reviewed interpreted by me.) Diagnostic Testing: Clinical Impression(s) from Imaging Studies Chest X-Ray 02/16/24 19:54 IMPRESSION: Mild diffuse interstitial prominence likely secondary to chronic interstitial changes or perhaps interstitial edema with more focal airspace disease in the right lower lobe, likely pneumonia. Electronically Signed: Tayo Grier, DO at 21:05 EST , Femur X-Ray 02/16/24 19:55 IMPRESSION: Comminuted intertrochanteric fracture. Electronically Signed: Tayo Grier, DO at 21:06 EST , Pelvis X-Ray 02/16/24 19:55 IMPRESSION: Comminuted intertrochanteric fracture of the right femur. Electronically Signed: Tayo Grier, at 21:07 EST , EKG Initial EKG: Attestation: I personally reviewed and interpreted this EKG as follows: Interpretation: Sinus Tachycardia (Rate is 113 otherwise unremarkable. UT interval is under 42 ms. Cures duration 72 ms. QT duration 326 ms. [place] is normal) Treatment and Re-Evaluation :: With patient had an elevated white count will obtain lactate, blood culture and start on antibiotics for community-acquired pneumonia. Comments:: Case was discussed with the ER physician at [facility] Dr. Pinzon who accepted patient on behalf of the medical and orthopedic service. Discharge Plan Triage Chief Complaint: Lower Extremity Injury ED Provider: Tyler Milelr Dx/Rx/DC Orders Clinical Impression: Closed comminuted intertrochanteric fracture of right femur, Community acquired pneumonia of right lower lobe of lung, SIRS (systemic inflammatory response syndrome), Injury due to fall, Hypoxia Prescriptions: No Action anastrozole 1 mg tablet 1 mg PO DAILY cholecalciferol (vitamin D3) 10 mcg (400 unit) capsule 10 mcg PO DAILY ibuprofen 200 mg capsule 200 mg PO Q6H PRN Primary Care Provider: Balta De Souza Referrals: Balta De Souza MD [Primary Care Provider] - Print Language: Frisian Disposition Disposition: Acute Care Hospital Discharge Location: [facility]
[2024-02-16 20:27] LABS: Differential Indicated SCAN CRITERIA MET
[2024-02-16 20:32] LABS: International Normalized Ratio 1.3; Partial Thromboplast Time 25.4 Seconds (24.1-36.2)
[2024-02-16 20:41] LABS: Anion Gap 10 (5-15); BUN 16 mg/dL (7-18); BUN/Creat Ratio 27.4 RATIO (10-20); Calcium,Total 8.5 mg/dL (8.5-10.1); Chloride 104 mmol/L (98-107); Creatinine, Serum 0.58 mg/dL (0.55-1.02); EST Glomerular Filtration Rate 107 mL/min (>60); Est Glom Filt Rate - Afr Amer 129 mL/min (>60); Estimated Creatinine Clearance 52.76 ml/min; Glucose 117 mg/dL (74-106); Potassium 3.6 mmol/L (3.5-5.1); Sodium Level 137 mmol/L (136-145)
[2024-02-16 20:53] LABS: Platelet Estimate ADEQUATE (ADEQ)
[2024-02-16 20:54] LABS: Red Cell Morphology NORM C+C NORMAL (NORM C&C)
[2024-02-16] MEDS: Ceftriaxone 2 GM in 0.9% Normal Saline (50mL MB+) 50 ML IV (21:48)
[2024-02-16 21:51] VITALS: BP 122/63; PULSE 112; RESP 27; O2SAT 92
[2024-02-16 21:52] VITALS: O2SAT 92
[2024-02-16 22:24] LABS: Lactic Acid 0.8 mmol/L (0.4-1.9)
[2024-02-16] MEDS: Azithromycin 500 MG in Dextrose 5%-Water (250mL Bag) 250 ML 250 MG IV (22:41)
[2024-02-16 23:00] VITALS: BP 110/67; PULSE 98; RESP 27; O2SAT 93
[2024-02-16 23:49] VITALS: BP 110/67; PULSE 98; RESP 26; TEMP 36.9; O2SAT 93
[2024-02-17 01:00] VITALS: BP 117/73; PULSE 94; RESP 20; O2SAT 94
[2024-02-17] MEDS: HYDROmorphone 0.5 MG/0.5 ML SYRINGE IV (02:06)
== END 2024-02-17 02:18 | disposition short-term general hospital (02) ==
PROVIDERS: Emergency Provider Emergency Medicine; PCP Family Medicine; Visit Provider Emergency Medicine
DX: S72.141A Displaced intertrochanteric fracture of right femur, initial encounter for closed fracture (principal); R65.10 Systemic inflammatory response syndrome (SIRS) of non-infectious origin without acute organ dysfunction; J18.9 Pneumonia, unspecified organism; W19.XXXA Unspecified fall, initial encounter; Z87.891 Personal history of nicotine dependence
CPT/HCPCS: 51702; 71045; 72170; 73552; 80048; 83605; 85025; 85610; 85730; 87040; 93005; 96365; 96367; 96375; 96376; 99285; A4216; J0696; J2405